=== PATIENT | male | born 1965 | race Caucasian/White ===

== ENCOUNTER 2017-09-03 12:13 | Emergency (ER) | payer OTHER ==
[~2017-09-03] VITALS: Ht 177.8 cm; Wt 83.9 kg
[~2017-09-03 12:13] MED LIST: FENT25DI2 TD; NOR10T GT
[2017-09-03 12:43] VITALS: BP 152/91
[2017-09-03] MEDS ORDERED: METHOCARBAMOL 500 MG TAB PO ONE (15:15)
[2017-09-03] MEDS ORDERED: KETOROLAC TROMETH 60MG/2ML VIAL IM ONE (15:15)
== END 2017-09-03 15:45 | disposition home or self-care (01) ==
LOC: ER 12:13
DX: G89.29 Other chronic pain (principal); M54.5 Low back pain; F17.210 Nicotine dependence, cigarettes, uncomplicated; I10 Essential (primary) hypertension; Z79.899 Other long term (current) drug therapy
CPT/HCPCS: 72100; 96372; 99284; J1885

== ENCOUNTER 2019-06-21 13:38 | Inpatient (IN) | payer MEDICARE, MEDICAID ==
[~2019-06-21] VITALS: Ht 177.8 cm; Wt 87.3 kg
[2019-06-21 15:04] LABS: Basophils # (auto) 0 10 ^3/uL (0-0.2); Basophils % (auto) 0.4 % (0.0-2.0); Eosinophils # (auto) 0.4 10 ^3/uL (0-0.8); Eosinophils % (auto) 5.8 % (0.0-7.0); Hematocrit 39.4 % (41.0-53.0); Hemoglobin 13.6 g/dL (13.5-17.5); Lymphocytes % (auto) 30.8 % (10.0-50.0); Mean Corpuscular Hemoglobin 32.3 pg (28.0-32.0); Mean Corpuscular Hgb Conc. 34.4 g/dL (32.0-36.0); Mean Corpuscular Volume 93.8 fL (80.0-100.0); Monocytes # (auto) 0.7 10 ^3/uL (0-1.3); Monocytes % (auto) 10.1 % (0.0-12.0); Neutrophils # (auto) 3.5 10 ^3/uL (1.6-8.6); Neutrophils % (auto) 52.9 % (37.0-80.0); Nucleated Red Blood Cells % 0.1 %; Platelet Count (auto) 263 10^3/uL (140-450); Red Cell Distribution Width 13.2 % (11.8-14.3); White Blood Cell 6.6 10^3/uL (4.4-10.8)
[2019-06-21 15:19] LABS: Albumin 3.6 g/dL (3.4-5.0); Calcium 9.8 mg/dL (8.5-10.1)
[2019-06-21 15:22] LABS: Bilirubin, Total 0.6 mg/dL (0.2-1.0); Total Protein 7.9 g/dL (6.4-8.2)
[2019-06-21 18:25] LABS: Urine Bacteria NONE SEEN /hpf (None Seen); Urine Blood Negative /uL (Negative); Urine Hyaline Cast MANY /lpf (0 - 2); Urine Mucus FEW (None Seen); Urine Specific Gravity 1.024 (1.001-1.035); Urine WBC 3 /hpf (0 - 3)
[2019-06-21] MEDS ORDERED: SODIUM CHLORIDE 0.9% 1,000 ML IV ONE ×2 (20:54)
[2019-06-21] MEDS ORDERED: IOHEXOL 300 MG/ML 100ML BOTTLE IJ ONE (20:57)
[2019-06-21] MEDS ORDERED: ACETAMINOPHEN 325 MG TAB PO PRN (22:30)
[2019-06-21] MEDS: SODIUM CHLORIDE 0.9% 1,000 ML IV SCH (22:55)
[2019-06-21] MEDS: HYDROcodone-ACET 5/325MG TAB PO PRN (22:55)
[2019-06-21] MEDS: PANTOPRAZOLE 40 MG TAB PO SCH (22:55)
[2019-06-21] MEDS: cefTRIAXone 1GM/50ML D5W 50 ML IV SCH (23:01)
--- NOTE | 2019-06-21 23:45 | NUR ---
[facility] admit from [facility] admitted to [facility]. Patient oriented to Wily Chaudhry, primary RN, unit, room, bed, and unit policies regarding patient care and visiting hours. The patient's is at bedside. Patient weighed by bedscale and encouraged to call if they need something. All questions and concerns addressed, patient verbalized understanding.
[2019-06-21 23:50] VITALS: BP 110/69
[2019-06-22] VITALS (8 sets, daily range): BP systolic 93–113; BP diastolic 63–74
[2019-06-22] MEDS: MORPHINE SULFATE 4 MG/ML SYR/VIAL IV PRN ×3 (00:10→14:35)
[2019-06-22] MEDS ORDERED: OXYC-629 PO (01:20)
[2019-06-22] MEDS ORDERED: ATEN-60 PO (01:20)
[2019-06-22] MEDS ORDERED: AMLO10TA13 PO (01:20)
[2019-06-22] MEDS ORDERED: OMEP20TA PO (01:20)
[2019-06-22] MEDS ORDERED: ALL100T PO (01:20)
--- NOTE | 2019-06-22 07:23 | NUR ---
Opening Shift Note Assumed care of patient, awake and alert. No S/S of distress/SOB or pain. Instructed on POC and to call for assist PRN, will continue to monitor for changes Q1hr and PRN. Bed is set in lowest locked position with side rails up x 2 for safety.
[2019-06-22] MEDS: LOSARTAN POTASSIUM 25 MG TAB PO SCH (10:00)
[2019-06-22] MEDS: ALLOPURINOL 300 MG TAB PO SCH (10:01)
[2019-06-22] MEDS: ENOXAPARIN SOD 40 MG/0.4 ML SYRINGE SC SCH (10:01)
[2019-06-22] MEDS: ASPirin 81 mg TAB PO SCH (10:01)
[2019-06-22] MEDS: HYDROcodone-ACET 5/325MG TAB PO PRN ×3 (10:02→22:24)
[2019-06-22] MEDS: DOCUSATE SOD 100 MG CAP PO PRN ×2 (10:11→22:14)
[2019-06-22 10:32] LABS: Basophils # (auto) 0 10 ^3/uL (0-0.2); Basophils % (auto) 0.5 % (0.0-2.0); Eosinophils # (auto) 0.3 10 ^3/uL (0-0.8); Eosinophils % (auto) 5.2 % (0.0-7.0); Hematocrit 34.6 % (41.0-53.0); Hemoglobin 12.1 g/dL (13.5-17.5); Lymphocytes # (auto) 1.7 10 ^3/uL (0.4-5.4); Lymphocytes % (auto) 35.5 % (10.0-50.0); Mean Corpuscular Hemoglobin 32.4 pg (28.0-32.0); Mean Corpuscular Hgb Conc. 34.8 g/dL (32.0-36.0); Mean Corpuscular Volume 93.2 fL (80.0-100.0); Monocytes # (auto) 0.5 10 ^3/uL (0-1.3); Neutrophils # (auto) 2.3 10 ^3/uL (1.6-8.6); Neutrophils % (auto) 47.8 % (37.0-80.0); Nucleated Red Blood Cells % 0.1 %; Platelet Count (auto) 217 10^3/uL (140-450); Red Blood Cells 3.72 10^6/uL (4.5-5.90); Red Cell Distribution Width 13.2 % (11.8-14.3); White Blood Cell 4.9 10^3/uL (4.4-10.8)
[2019-06-22 11:00] LABS: BUN/Creatinine Ratio 11.7; Calcium 9.4 mg/dL (8.5-10.1)
--- NOTE | 2019-06-22 11:16 | NUR ---
MD at bedside Dr. Torres, updated pt on POC. Patient verbalized understanding at this time.
[2019-06-22] MEDS ORDERED: IOHEXOL 350 MG/ML 100ML IJ ONE (11:20)
[2019-06-22] MEDS ORDERED: NICOTINE 21MG/24 HR TOPICAL PATCH TD ONE (11:30)
--- NOTE | 2019-06-22 11:30 | NUR ---
Patient off unit Taken down to radiology via wheelchair, no distress noted upon departure.
[2019-06-22] MEDS: SODIUM CHLORIDE 0.9% 1,000 ML IV SCH (12:43)
[2019-06-22] MEDS ORDERED: IPRATROPIUM BROM 0.5 MG/2.5ML INH SOL NEB PRN (14:00)
[2019-06-22] MEDS ORDERED: ALBUTEROL SULF 2.5 MG/0.5ML(0.5%) NEB SOLN NEB PRN (14:00)
--- NOTE | 2019-06-22 20:15 | NUR ---
Opening Shift Note Assumed care of patient, awake and alert. No S/S of SOB. Patient is on room air. Respirations even and unlabored. Patient reports 6/10 pain in his neck, back, and feet. Patient refuses pain medication at this time. Ice packs placed on patient's feet. Instructed on POC and to call for assist PRN, will continue to monitor for changes Q1hr and PRN.
--- NOTE | 2019-06-22 21:16 | NUR ---
Respiratory note: PT DOES NOT APPEAR TO BE IN DISTRESS AT THIS TIME. RR 18 HR 65 SPO2 97% ON RA EDUCATED PT ON NURSE CALL BUTTON IF HE FEELS SOB. WILL ENDORSE TO DAY SHIFT RT.
[2019-06-22] MEDS: PANTOPRAZOLE 40 MG TAB PO SCH (22:13)
[2019-06-22] MEDS: cefTRIAXone 1GM/50ML D5W 50 ML IV SCH (22:14)
[2019-06-23] VITALS (8 sets, daily range): BP systolic 109–135; BP diastolic 65–84
[2019-06-23] MEDS: SODIUM CHLORIDE 0.9% 1,000 ML IV SCH ×2 (03:17→18:27)
--- NOTE | 2019-06-23 04:28 | NUR ---
Endorsed care to Booker BOLAÑOS. Report given. Patient has no signs of distress.
--- NOTE | 2019-06-23 04:44 | NUR ---
RECEIVED REPORT FROM OUTGOING SENIOR ORACLE DBA RN ASSUMING ROLE OF CARE OF PATIENT AT THIS TIME. PATIENT SHOWING NO SIGN OF DISTRESS, SHORTNESS OF BREATH AND PATIENT DENYING PAIN AT THIS TIME. PATIENT RESTING COMFORTABLY. WILL CONTINUE TO MONITOR PATIENT.
--- NOTE | 2019-06-23 06:38 | NUR ---
Respiratory note: PT ASSESSED FOR PRN TX. HR 65, RR 18, POX 99%, BS ARE CLEAR. NO SOB OR DISTRESS NOTED AT THIS TIME. PT WAS NOTIFY TO HAVE RT PAGE FOR MN TX.
--- NOTE | 2019-06-23 07:00 | NUR ---
Opening Shift Note Received report on the patient. Awake lying in bed. Patient shows no signs of distress at this time. Discussed the plan of care with the patient. Bed in lowest position, side rails up x2, and the call light is within reach. Will continue to monitor.
[2019-06-23] MEDS: MORPHINE SULFATE 4 MG/ML SYR/VIAL IV PRN ×2 (08:41→20:54)
[2019-06-23] MEDS: NICOTINE 21MG/24 HR TOPICAL PATCH TD SCH (09:54)
[2019-06-23] MEDS: LOSARTAN POTASSIUM 25 MG TAB PO SCH (09:56)
[2019-06-23] MEDS: ASPirin 81 mg TAB PO SCH (09:56)
[2019-06-23] MEDS: ALLOPURINOL 300 MG TAB PO SCH (09:57)
[2019-06-23] MEDS: ENOXAPARIN SOD 40 MG/0.4 ML SYRINGE SC SCH (10:00)
[2019-06-23] MEDS ORDERED: LACTULOSE 20Gm/30ML SOLN PO ONE (11:45)
--- NOTE | 2019-06-23 12:00 | NUR ---
ASSUMED CARE OF PATIENT AT THIS TIME. RECEIVED REPORT FROM MAMI KELLER.
[2019-06-23] MEDS: HYDROcodone-ACET 5/325MG TAB PO PRN (12:10)
[2019-06-23 12:49] LABS: INR 1.05 (0.9-1.15); Partial Thromboplastin Time 36.5 sec (23.64-32.05)
[2019-06-23] MEDS: ALPRAZolam 0.5 MG TAB PO SCH ×2 (14:28→22:26)
--- NOTE | 2019-06-23 20:10 | NUR ---
IV removal from right wrist due to leaking and tenderness IV DC'd with clean sterile technique, catheter fully intact. Pressure dressing applied to site. Patient tolerated well.
--- NOTE | 2019-06-23 20:10 | NUR ---
Opening Shift Note Assumed care of patient, awake and alert. No S/S of SOB/distress. Patient is on room air. Respirations even and unlabored. Instructed on POC and to call for assist PRN, will continue to monitor for changes Q1hr and PRN.
--- NOTE | 2019-06-23 20:20 | NUR ---
Respiratory note: PT ASSESSED FOR PRN MED NEB TX. HR 75, RR 18, SPO2 97% ON RA. NO SIGNS OF ANY RESPIRATORY DISTRESS NOTED. ADVISED PT TO CALL IF TX IS NEEDED.
[2019-06-23] MEDS: cefTRIAXone 1GM/50ML D5W 50 ML IV SCH (22:26)
[2019-06-23] MEDS: PANTOPRAZOLE 40 MG TAB PO SCH (22:26)
[2019-06-24] MEDS: HYDROcodone-ACET 5/325MG TAB PO PRN ×3 (01:56→21:18)
[2019-06-24 05:17] VITALS: BP 118/70
[2019-06-24] MEDS: MORPHINE SULFATE 4 MG/ML SYR/VIAL IV PRN (05:43)
[2019-06-24] MEDS: ALPRAZolam 0.5 MG TAB PO SCH ×3 (05:44→22:11)
--- NOTE | 2019-06-24 07:00 | NUR ---
CLOSING NOTE No S/S of SOB/distress. Patient is on room air. Respirations even and unlabored.
--- NOTE | 2019-06-24 07:30 | NUR ---
Opening Shift Note RECEIVED REPORT FROM NOC RN. Assumed care of patient, awake and alert. No S/S of distress/SOB or pain. BED IN LOWEST, LOCKED POSITION WITH SIDERAILS UP x2 AND CALL LIGHT WITHIN REACH. Instructed on POC and to call for assist PRN, will continue to monitor for changes Q1hr and PRN.
[2019-06-24] MEDS: SODIUM CHLORIDE 0.9% 1,000 ML IV SCH ×2 (07:39→21:18)
[2019-06-24] MEDS ORDERED: IOHEXOL 350 MG/ML 100ML IJ ONE (07:43)
--- NOTE | 2019-06-24 08:54 | NUR ---
Respiratory note: PT AWAKE, AND ALERT. NO RESPIRATORY DISTRESS NOTED. SPO2 98% ON RA, HR 79, RR 16, BS CLEAR/DIMINISHED BILATERALLY. PRN MEDNEB TX NOT INDICATED AT THIS TIME. PT INFORMED TO PUSH CALL BUTTON IF INCREASED WOB, SOB, OR WHEEZING OCCURS.
[2019-06-24 09:11] VITALS: BP 113/72
[2019-06-24] MEDS ORDERED: LORazepam 2MG/ML-1ML VIAL IV ONE (09:30)
[2019-06-24] MEDS ORDERED: GADOTERIDOL 279.3mg/mL 20ml Vial IV ONE (09:37)
[2019-06-24] MEDS ORDERED: MIDAZOLAM HCL 1MG/1ML-2 ML VIAL IV ONE (10:15)
[2019-06-24] MEDS ORDERED: fentaNYL CITRATE 100 MCG/2 ML VL IV ONE (10:15)
[2019-06-24] MEDS ORDERED: LIDOCAINE 2%HCL (LOCAL ANESTH.) INJ 20ML MDV ONE (11:40)
[2019-06-24] MEDS: ALLOPURINOL 300 MG TAB PO SCH (11:42)
[2019-06-24] MEDS: ENOXAPARIN SOD 40 MG/0.4 ML SYRINGE SC SCH (11:42)
[2019-06-24] MEDS: NICOTINE 21MG/24 HR TOPICAL PATCH TD SCH (11:42)
[2019-06-24] MEDS: ASPirin 81 mg TAB PO SCH (11:43)
[2019-06-24] MEDS: LOSARTAN POTASSIUM 25 MG TAB PO SCH (11:43)
[2019-06-24 12:30] VITALS: BP 137/86
--- NOTE | 2019-06-24 14:01 | NUR ---
Nutrition Assessment Notes Please refer to link for full assessment notes. Est energy needs: kcals (23-25 kcal/kgBW) Est protein needs: 69-97 gms/day (0.8-1.0 gm/kgBW) Will continue to monitor and reassess prn. Addendum: 06/24/19 at [address] Amended: Links added.
--- NOTE | 2019-06-24 15:03 | NUR ---
PER DR. Maximiliano REESE, MESSAGE LEFT WITH DR. SYKES'S EXCHANGE REGARDING THE BRAIN MRI RESULTS.
[2019-06-24 17:00] VITALS: BP 129/87
[2019-06-24 20:10] VITALS: BP 127/80
--- NOTE | 2019-06-24 21:30 | NUR ---
Respiratory note: PT ASSESSED FOR PRN MED NEB TX. HR 83, RR 18, SPO2 99% ON RA. NO SIGNS OF ANY RESPIRATORY DISTRESS NOTED. ADVISED PT TO CALL IF TX IS NEEDED. RT NAME AND PAGER NUMBER WRITTEN ON PT'S BOARD.
[2019-06-24 22:00] VITALS: BP 127/80
[2019-06-24] MEDS: PANTOPRAZOLE 40 MG TAB PO SCH (22:11)
[2019-06-24] MEDS: DexAMETHasone SOD PHOS 4 MG/1ML SDV INJ IV SCH (22:11)
[2019-06-24] MEDS: cefTRIAXone 1GM/50ML D5W 50 ML IV SCH (22:12)
--- NOTE | 2019-06-24 22:40 | NUR ---
HR reassessed and is 98. Patient has no S/S of distress/SOB. Patient asymptomatic.
--- NOTE | 2019-06-25 04:25 | NUR ---
IV removal due to leaking and bleeding IV DC'd with clean sterile technique, catheter fully intact. Pressure dressing applied to site. Patient tolerated well.
--- NOTE | 2019-06-25 04:50 | NUR ---
IV insertion IV access obtained, via clean sterile technique by inserting 22 gauge catheter at right AC after 2 attempts by Martín BOLAÑOS. IV secured properly. No trauma to site. Patient tolerated well.
[2019-06-25 05:00] VITALS: BP 109/82
[2019-06-25] MEDS: ALPRAZolam 0.5 MG TAB PO SCH ×3 (05:27→21:34)
--- NOTE | 2019-06-25 07:00 | NUR ---
CLOSING NOTE No S/S of SOB/distress. Patient is on room air. Respirations even and unlabored.
--- NOTE | 2019-06-25 08:00 | NUR ---
RECEIVED PATIENT ALERT AND ORIENTED X4, NOT IN DISTRESS, CLEAR LUNG SOUNDS RR=18 DEEP BREATHING AND COUGHING WAS ENCOURAGED, DEMONSTRATED WELL, HEART R=78, ABDOMEN SOFT WITH ACTIVE BS, LAST BM=06/25/19 REPORTED, SKIN INTACT WARM TO TOUCH, RADIAL AND PEDAL PULSES PALPABLE, CAP REFILL <3 SECONDS, RESTING ON BED, HEAD OF BED ELEVATED, BED ON LOW POSITION, RAILS UP X2, CALL LIGHT ON REACH, WILL CONTINUE MONITORING.
[2019-06-25 09:00] VITALS: BP_SYST 94; BP_SYST 95; BP_DIAS 60; BP_DIAS 61
[2019-06-25] MEDS: LOSARTAN POTASSIUM 25 MG TAB PO SCH (09:36)
[2019-06-25] MEDS: ASPirin 81 mg TAB PO SCH (09:36)
[2019-06-25] MEDS: DexAMETHasone SOD PHOS 4 MG/1ML SDV INJ IV SCH ×2 (09:36→21:34)
[2019-06-25] MEDS: ALLOPURINOL 300 MG TAB PO SCH (09:37)
[2019-06-25] MEDS: ENOXAPARIN SOD 40 MG/0.4 ML SYRINGE SC SCH (09:37)
[2019-06-25] MEDS: NICOTINE 21MG/24 HR TOPICAL PATCH TD SCH (09:38)
--- NOTE | 2019-06-25 11:56 | NUR ---
REFUSED 10:00 AM VALERIE RHOADES.
[2019-06-25] MEDS: SODIUM CHLORIDE 0.9% 1,000 ML IV SCH (12:15)
[2019-06-25] MEDS: ONDANSETRON HCL 4 MG/2 ML VIAL IV PRN (12:32)
[2019-06-25] MEDS: MORPHINE SULFATE 4 MG/ML SYR/VIAL IV PRN ×2 (12:33→20:08)
[2019-06-25 13:00] VITALS: BP_SYST 100; BP_SYST 134; BP_DIAS 69; BP_DIAS 82
--- NOTE | 2019-06-25 14:57 | NUR ---
OUT OF BED, SITTING ON THE CHAIR, PENDING RADIOLOGY AND ONCOLOGY CONSULT, AT BED SITE, WILL CONTINUE MONITORING.
--- NOTE | 2019-06-25 15:01 | NUR ---
RADIOLOGY WAS CONTACTED, FOR FOLLOW UP AND RADIOLOGY CONSULT UPDATES, NO RADIOLOGY PROCESS PENDING FOR TODAY REPORTED, DR. REESE WAS NOTIFIED AND AWARE, WILL CONTINUE MONITORING.
--- NOTE | 2019-06-25 16:29 | NUR ---
assessment Patient is a 53 year old male who is alert and oriented. Patients cognitive abilities are intact. Prior to admission patient lived home with a friend and functioned independently. Patient informed me he is able to care for his own ADLs. Per patient he will return home to his prior living arrangements post discharge and family will transport him home. Patient informed me he has a fww for home use. Patient feels safe returning home on discharge. Patients post discharge needs to be determined prior to discharge. I informed patient he has a right to speak to a social media campaign manager regarding all care. I informed patient he has a right to participate in any and all discharge planning. Patient does not have a POA and advanced directive. I have offered patient information on POA and advanced directives. I informed the patient the advantages and benefits of having an Advanced Directive. Patient verbalized understanding and agreed to discharge plan. Addendum: 06/25/19 at 1630 by Archana LEYVA Amended: Links added.
[2019-06-25 17:00] VITALS: BP 125/78
[2019-06-25] MEDS: HYDROcodone-ACET 5/325MG TAB PO PRN (18:39)
--- NOTE | 2019-06-25 19:30 | NUR ---
RESTING ON BED, NOT IN DISTRESS, HEAD OF BED ELEVATED, BED ON LOW POSITION, RAILS UP X2, CALL LIGHT ON REACH, REPORT WAS GIVEN TO THE SENIOR SOFTWARE DEVELOPMENT ENGINEER RN.
[2019-06-25] MEDS: PANTOPRAZOLE 40 MG TAB PO SCH (21:34)
[2019-06-25 22:00] VITALS: BP 111/71
[2019-06-26] MEDS: SODIUM CHLORIDE 0.9% 1,000 ML IV SCH ×2 (02:33→16:51)
[2019-06-26 05:00] VITALS: BP 93/57
[2019-06-26] MEDS: ALPRAZolam 0.5 MG TAB PO SCH ×3 (05:33→21:50)
--- NOTE | 2019-06-26 07:45 | NUR ---
RECEIVED PATIENT ALERT AND ORIENTED X4, NOT IN DISTRESS, CLEAR LUNG SOUNDS IN BILATERAL UPPER AND DIMINISHED IN LOWER LOBES RR=18 DEEP BREATHING AND COUGHING WAS ENCOURAGED, DEMONSTRATED WELL, HEART R=74, ABDOMEN SOFT WITH ACTIVE BS, LAST BM=06/25/19 REPORTED, SKIN INTACT WARM TO TOUCH, RADIAL AND PEDAL PULSES PALPABLE, CAP REFILL <3 SECONDS, RESTING ON BED, HEAD OF BED ELEVATED, BED ON LOW POSITION, RAILS UP X2, CALL LIGHT ON REACH, WILL CONTINUE MONITORING.
[2019-06-26 09:00] VITALS: BP 124/84
--- NOTE | 2019-06-26 09:00 | NUR ---
DR. ESCOBAR WAS CALLED FOR PENDING CONSULTING FOLLOW UP AND UPDATED, LEFT A MESSAGE, WAITING FOR CALL BACK, WILL CONTINUE MONITORING.
[2019-06-26] MEDS: LOSARTAN POTASSIUM 25 MG TAB PO SCH (09:31)
[2019-06-26] MEDS: ASPirin 81 mg TAB PO SCH (09:31)
[2019-06-26] MEDS: DexAMETHasone SOD PHOS 4 MG/1ML SDV INJ IV SCH ×2 (09:31→21:48)
[2019-06-26] MEDS: NICOTINE 21MG/24 HR TOPICAL PATCH TD SCH (09:32)
[2019-06-26] MEDS: ALLOPURINOL 300 MG TAB PO SCH (09:32)
[2019-06-26] MEDS: MORPHINE SULFATE 4 MG/ML SYR/VIAL IV PRN (09:33)
[2019-06-26] MEDS: ONDANSETRON HCL 4 MG/2 ML VIAL IV PRN (09:33)
[2019-06-26] MEDS: ENOXAPARIN SOD 40 MG/0.4 ML SYRINGE SC SCH (10:00)
[2019-06-26 13:00] VITALS: BP 112/79
--- NOTE | 2019-06-26 14:30 | NUR ---
OUT OF BED AND AMBULATED AROUND THE UNIT, TOLERATED WELL, TOLERATED SHOWER, NOT IN DISTRESS, RESTING ON BED AND SLEEPING, PENDING ONCOLOGY CONSULT, HEAD OF BED ELEVATED, BED ON LOW POSITION, RAILS UP X2, CALL LIGHT ON REACH, WILL CONTINUE MONITORING.
[2019-06-26] MEDS: HYDROcodone-ACET 5/325MG TAB PO PRN ×2 (17:22→21:52)
--- NOTE | 2019-06-26 19:25 | NUR ---
RESTING ON BED, NOT IN DISTRESS, HEAD OF BED ELEVATED, BED ON LOW POSITION, RAILS UP X2, CALL LIGHT ON REACH, REPORT WAS GIVEN TO THE BAKERY DECORATOR RN.
--- NOTE | 2019-06-26 19:28 | NUR ---
Opening Shift Note Received report from neal Hooper RN. Assumed care of patient, awake and alert. No S/S of distress/SOB, but c/o pain to back. Will give pain medication or pain. Instructed on POC and to call for assist PRN, will continue to monitor for changes Q1hr and PRN. Bed placed in lowest position, and call light within reach.
[2019-06-26 20:00] VITALS: BP 115/60
[2019-06-26] MEDS: PANTOPRAZOLE 40 MG TAB PO SCH (21:50)
--- NOTE | 2019-06-26 21:52 | NUR ---
Pain medication given for back pain. Will monitor
[2019-06-26 22:00] VITALS: BP 115/60
[2019-06-27 05:00] VITALS: BP 112/67
--- NOTE | 2019-06-27 05:05 | NUR ---
Patient is resting in bed with eyes closed, no distress noted and patient denies pain at this time.
[2019-06-27] MEDS: MORPHINE SULFATE 4 MG/ML SYR/VIAL IV PRN ×2 (05:14→14:14)
[2019-06-27] MEDS: ALPRAZolam 0.5 MG TAB PO SCH ×3 (06:41→20:23)
[2019-06-27] MEDS: SODIUM CHLORIDE 0.9% 1,000 ML IV SCH ×2 (07:09→20:24)
[2019-06-27 09:00] VITALS: BP 126/89
[2019-06-27] MEDS: LOSARTAN POTASSIUM 25 MG TAB PO SCH (10:19)
[2019-06-27] MEDS: ASPirin 81 mg TAB PO SCH (10:19)
[2019-06-27] MEDS: DexAMETHasone SOD PHOS 4 MG/1ML SDV INJ IV SCH ×2 (10:19→20:24)
[2019-06-27] MEDS: ALLOPURINOL 300 MG TAB PO SCH (10:20)
[2019-06-27] MEDS: ENOXAPARIN SOD 40 MG/0.4 ML SYRINGE SC SCH (10:20)
[2019-06-27] MEDS: NICOTINE 21MG/24 HR TOPICAL PATCH TD SCH (10:20)
[2019-06-27] MEDS: HYDROcodone-ACET 5/325MG TAB PO PRN ×2 (10:21→20:39)
--- NOTE | 2019-06-27 10:30 | NUR ---
OUT OF BED AND AMBULATED AROUND THE UNIT, BACK TO THE BED, TOLERATED WELL, WILL CONTINUE MONITORING,
[2019-06-27 12:58] VITALS: BP 119/77
--- NOTE | 2019-06-27 13:56 | NUR ---
CONTACTED PATHOLOGY FOR ADRENAL BIOPSY RESULT FOLLOW UP AND UPDATES, PATHOLOGY WILL BRING THE RESULT INFORMATION TO THE CHART REPORTED, WILL CONTINUE MONITORING.
[2019-06-27] MEDS: ONDANSETRON HCL 4 MG/2 ML VIAL IV PRN (14:14)
--- NOTE | 2019-06-27 14:43 | NUR ---
PENDING SURGICAL CONSULT FOR PORT CATH PLACE MENT ORDERED, OR WAS CALLED X4 NO RESPONSE, RESTING ON BED, NOT IN DISTRESS, WILL CONTINUE MONITORING.
--- NOTE | 2019-06-27 15:05 | NUR ---
DR. DUNN WAS PAGED FOR SURGICAL CONSULT ORDERED, WAITING FOR CALL BACK.
--- NOTE | 2019-06-27 15:31 | NUR ---
Nutrition Follow-up Notes Wt.: 85.3 kg today Currently on Regular diet with good PO intake aeb avg of 75%. Est energy needs: 5460-5486 kcals (23-25 kcal/kgBW). Est protein needs: 69-97 gms/day (0.8-1.0 gm/kgBW). Will continue to monitor pertinent labs and reassess nutrient needs prn No new pertinent labs since 06/22/19. Skin: Jose scale 20, low risk, skin intact per dry primer powder blender. GI: Pt had BM 06/25/19 per dry primer powder blender. PES: No current Nutritional Pr Will continue to monitor PO status, skin status, pertinent labs and weight trend. F/u in 3 to 5 days. Recommendations: 1) Continue to closely monitor pt PO intake to meet a goal of at least 75% of meals eaten 2) Continue current plan of care.
[2019-06-27 17:00] VITALS: BP 108/89
--- NOTE | 2019-06-27 19:01 | NUR ---
SURGICAL CONSULT WITH DR. JACOME WAS DONE, PENDING CBC PT AND INR, PENDING KEEP NPO POST MD, HOLD LOVENOX SQ IN AM, FOR POSSIBLE PORT CATH INSERTION IN AM REPORTED BY DR. JACOME, WILL CONTINUE MONITORING.
--- NOTE | 2019-06-27 19:18 | NUR ---
RESTING ON BED, NOT IN DISTRESS, HEAD OF BED ELEVATED, BED ON LOW POSITION, RAILS UP X2, CALL LIGHT ON REACH, REPORT WAS GIVEN TO THE FOREST ECOLOGY PROFESSOR RN.
[2019-06-27 19:26] LABS: Basophils # (auto) 0 10 ^3/uL (0-0.2); Eosinophils # (auto) 0 10 ^3/uL (0-0.8); Hematocrit 34.1 % (41.0-53.0); Hemoglobin 11.6 g/dL (13.5-17.5); Lymphocytes # (auto) 1.2 10 ^3/uL (0.4-5.4); Lymphocytes % (auto) 9.7 % (10.0-50.0); Mean Corpuscular Hemoglobin 31.8 pg (28.0-32.0); Mean Corpuscular Hgb Conc. 34.1 g/dL (32.0-36.0); Mean Corpuscular Volume 93.3 fL (80.0-100.0); Monocytes # (auto) 0.5 10 ^3/uL (0-1.3); Monocytes % (auto) 4.2 % (0.0-12.0); Neutrophils # (auto) 10.6 10 ^3/uL (1.6-8.6); Neutrophils % (auto) 86.1 % (37.0-80.0); Platelet Count (auto) 241 10^3/uL (140-450); Red Blood Cells 3.65 10^6/uL (4.5-5.90); Red Cell Distribution Width 13.1 % (11.8-14.3); White Blood Cell 12.4 10^3/uL (4.4-10.8)
[2019-06-27 19:40] LABS: INR 1.03 (0.9-1.15)
[2019-06-27] MEDS: PANTOPRAZOLE 40 MG TAB PO SCH (20:23)
[2019-06-27 22:00] VITALS: BP 125/83
--- NOTE | 2019-06-28 | NUR ---
PT NOW NPO, PT EDUCATED, STATED UNDERSTANDING, SAFETY PRECAUTIONS IN PLACE. WILL CONTINUE TO MONITOR.
[2019-06-28] MEDS: HYDROcodone-ACET 5/325MG TAB PO PRN (00:13)
[2019-06-28] MEDS: ONDANSETRON HCL 4 MG/2 ML VIAL IV PRN ×4 (03:46→21:15)
[2019-06-28] MEDS: MORPHINE SULFATE 4 MG/ML SYR/VIAL IV PRN ×5 (03:46→23:59)
[2019-06-28 05:00] VITALS: BP 136/90
[2019-06-28] MEDS: ALPRAZolam 0.5 MG TAB PO SCH ×4 (06:00→21:27)
[2019-06-28 08:00] VITALS: BP 111/61
[2019-06-28 09:00] VITALS: BP 111/61
[2019-06-28] MEDS: LOSARTAN POTASSIUM 25 MG TAB PO SCH (10:00)
[2019-06-28] MEDS: ALLOPURINOL 300 MG TAB PO SCH (10:00)
[2019-06-28] MEDS: ASPirin 81 mg TAB PO SCH (10:00)
[2019-06-28] MEDS: ENOXAPARIN SOD 40 MG/0.4 ML SYRINGE SC SCH (10:00)
[2019-06-28] MEDS: DexAMETHasone SOD PHOS 4 MG/1ML SDV INJ IV SCH ×2 (10:00→21:27)
[2019-06-28] MEDS: NICOTINE 21MG/24 HR TOPICAL PATCH TD SCH (10:00)
[2019-06-28] MEDS ORDERED: LIDOCAINE 1% HCL (LOCAL ANESTH.) INJ 20ML MDV ONE (10:06)
[2019-06-28] MEDS ORDERED: ceFAZolin 1GM VL ONE (10:06)
[2019-06-28] MEDS ORDERED: HEPARIN SODIUM (PORCINE) 5000 UNITS/ML 1ML VIAL ONE (10:07)
[2019-06-28] MEDS ORDERED: HEPARIN 1,000 UNITS/ml 1ML VIAL ONE (10:07)
[2019-06-28] MEDS ORDERED: MEPERIDINE HCL (25 MG/ML) 1ML VIAL ONE (10:24)
[2019-06-28] MEDS ORDERED: fentaNYL CITRATE 100 MCG/2 ML VL ONE (10:25)
[2019-06-28] MEDS ORDERED: MIDAZOLAM HCL 1MG/1ML-2 ML VIAL ONE (10:25)
[2019-06-28] MEDS ORDERED: ceFAZolin 1GM/50ML 50 ML IV ONE (10:32)
[2019-06-28] MEDS ORDERED: PROPOFOL 10 MG/ML 20 ML IV ONE (11:22)
[2019-06-28] MEDS ORDERED: DexAMETHasone SOD PHOS 10MG/1ML VIAL INJ ONE (11:22)
[2019-06-28] MEDS: SODIUM CHLORIDE 0.9% 1,000 ML IV SCH (11:45)
--- NOTE | 2019-06-28 12:14 | NUR ---
RECEIVED REPORT FROM LISSETT BOLAÑOS PATIENT CAN RESUME DIET AND ALL ORDERS ORDERED AND PER DR JACOME NATALIE CATH CAN BE USED IN 48 HOURS.
[2019-06-28] MEDS: DOCUSATE SOD 100 MG CAP PO PRN (18:35)
[2019-06-28] MEDS: PANTOPRAZOLE 40 MG TAB PO SCH (21:27)
[2019-06-28 22:00] VITALS: BP 133/65
[2019-06-29] MEDS: HYDROcodone-ACET 5/325MG TAB PO PRN (00:50)
[2019-06-29] MEDS: SODIUM CHLORIDE 0.9% 1,000 ML IV SCH (02:03)
[2019-06-29] MEDS: MORPHINE SULFATE 4 MG/ML SYR/VIAL IV PRN ×2 (04:42→09:44)
[2019-06-29 05:00] VITALS: BP 127/83
[2019-06-29] MEDS: ALPRAZolam 0.5 MG TAB PO SCH ×2 (05:54→14:00)
--- NOTE | 2019-06-29 07:15 | NUR ---
PATIENT COMPLAINED OF PAIN AT HIS SURGICAL SITE ON THE LEFT UPPER CHEST. WAS MEDICATED FOR PAIN WITH MORPHINE AND NORCO. HIS ANTECUBITAL IV LINE BECAME INFILTRATED AND A NEW ONE INSERTED ON THE RIGHT HAND. GUAGE 22. HIS IV FLUID IS INFUSING NOW UNINITERRUPTED.
--- NOTE | 2019-06-29 07:30 | NUR ---
Opening Shift Note Assumed care of patient. Patient is awake and alert x4. No S/S of distress/SOB or pain. Instructed on POC and to call for assist. Will continue to monitor. Bed locked in the lowest position. Bed rails up x2. Call light in reach.
[2019-06-29 08:43] VITALS: BP 146/87
[2019-06-29] MEDS: ALLOPURINOL 300 MG TAB PO SCH (09:44)
[2019-06-29] MEDS: DexAMETHasone SOD PHOS 4 MG/1ML SDV INJ IV SCH (09:45)
[2019-06-29] MEDS: ASPirin 81 mg TAB PO SCH (09:45)
[2019-06-29] MEDS: LOSARTAN POTASSIUM 25 MG TAB PO SCH (09:46)
[2019-06-29] MEDS: ENOXAPARIN SOD 40 MG/0.4 ML SYRINGE SC SCH (09:46)
[2019-06-29] MEDS: NICOTINE 21MG/24 HR TOPICAL PATCH TD SCH (09:54)
[2019-06-29] MEDS: DOCUSATE SOD 100 MG CAP PO PRN (09:54)
--- NOTE | 2019-06-29 10:00 | NUR ---
MD AT THE BEDSIDE ALL QUESTIONS AND CONCERNS ADDRESSED AT THIS TIME.
[2019-06-29 10:14] VITALS: BP 146/87
--- NOTE | 2019-06-29 14:40 | NUR ---
DISCHARGE Discharge instructions given as ordered. Encourage to follow up with PMD as instructed. Instructed patient to call as soon as possible to schedule all follow up appointments. Patient refused to see PCP. Patient states, "My primary could have caught this a long time ago and didn't even check me, i don't want to see him anymore." Provided patient with patient hospice care transitions coordinator contact information and to call on Monday to possibly assist with arranging new PCP. All questions and concerns addressed. Patient verbalized understanding. Medication reconciliation form completed and copy given to patient. Educated patient and patients significant other and other present family extensively on narcotic use. Patient verbalized understanding and states, "I will contact my pain management center before I fill the prescription. I will stagger my pain medications and I will not take them at the same time because I can overdose." IV removed with catheter intact, pressure dressing applied. Patient taken to vehicle via wheelchair with all personal belongings, accompanied by staff and family member. No distress noted at time of departure.
== END 2019-06-29 14:40 | disposition home or self-care (01) | DRG 181 ==
LOC: ER 13:38 → TELE 13:39 → WEST WING 23:44
PROVIDERS: ADMIT Hospitalist; ATTEND Family Medicine
PROC: 0GB33ZX Excision of Right Adrenal Gland, Percutaneous Approach, Diagnostic (ICD-10-PCS; principal; 2019-06-24)
PROC: 0JH63XZ Insertion of Tunneled Vascular Access Device into Chest Subcutaneous Tissue and Fascia, Percutaneous Approach (ICD-10-PCS; 2019-06-28)
PROC: 05H633Z Insertion of Infusion Device into Left Subclavian Vein, Percutaneous Approach (ICD-10-PCS; 2019-06-28)
PROC: B5171ZA Fluoroscopy of Left Subclavian Vein using Low Osmolar Contrast, Guidance (ICD-10-PCS; 2019-06-28)
DX: C34.90 Malignant neoplasm of unspecified part of unspecified bronchus or lung (principal); N39.0 Urinary tract infection, site not specified; C77.9 Secondary and unspecified malignant neoplasm of lymph node, unspecified; C79.71 Secondary malignant neoplasm of right adrenal gland; B37.0 Candidal stomatitis; C79.31 Secondary malignant neoplasm of brain; C79.72 Secondary malignant neoplasm of left adrenal gland; K21.9 Gastro-esophageal reflux disease without esophagitis; D35.2 Benign neoplasm of pituitary gland; I10 Essential (primary) hypertension; J44.9 Chronic obstructive pulmonary disease, unspecified; R91.8 Other nonspecific abnormal finding of lung field; G89.29 Other chronic pain; F41.9 Anxiety disorder, unspecified; M1A.9XX0 Chronic gout, unspecified, without tophus (tophi); Z95.828 Presence of other vascular implants and grafts
CPT/HCPCS: 10022; 36415; 36561; 70450; 70553; 71045; 71260; 71275; 74150; 74176; 76001; 77001; 77012; 80048; 80053; 81001; 85025; 85379; 85610; 85730; 86850; 86900; 86901; 87086; 93005; 93970; G0378; J0690; J0696; J1100; J2001; J2250; J2405; J2704

== ENCOUNTER → 2019-07-15 | Outpatient (CLI) | payer MEDICARE, MEDICAID ==
[~2019-07-15] MED LIST changes: +ALL100T PO; +AMLO10TA13 PO; +ATEN-60 PO; +OMEP20TA PO; +OXYC-629 PO
[2019-07-15 13:35] LABS: Basophils # (auto) 0 10 ^3/uL (0-0.2); Basophils % (auto) 0.1 % (0.0-2.0); Eosinophils # (auto) 0 10 ^3/uL (0-0.8); Eosinophils % (auto) 0.1 % (0.0-7.0); Hemoglobin 11.9 g/dL (13.5-17.5); Lymphocytes % (auto) 9.6 % (10.0-50.0); Mean Corpuscular Hemoglobin 31.7 pg (28.0-32.0); Mean Corpuscular Volume 96.2 fL (80.0-100.0); Monocytes # (auto) 0.4 10 ^3/uL (0-1.3); Monocytes % (auto) 3.7 % (0.0-12.0); Neutrophils # (auto) 8.6 10 ^3/uL (1.6-8.6); Neutrophils % (auto) 86.5 % (37.0-80.0); Nucleated Red Blood Cells % 0.1 %; Platelet Count (auto) 183 10^3/uL (140-450); Red Blood Cells 3.74 10^6/uL (4.5-5.90); Red Cell Distribution Width 14.6 % (11.8-14.3)
[2019-07-15 13:57] LABS: Albumin 3.6 g/dL (3.4-5.0); Calcium 8.7 mg/dL (8.5-10.1)
[2019-07-15 14:01] LABS: BUN/Creatinine Ratio 20.8; Bilirubin, Total 0.5 mg/dL (0.2-1.0); Total Protein 6.7 g/dL (6.4-8.2)
== END | disposition home or self-care (01) ==
LOC: LAB 13:18
PROVIDERS: ATTEND Internal Medicine
DX: C34.12 Malignant neoplasm of upper lobe, left bronchus or lung (principal)
CPT/HCPCS: 36415; 80053; 83615; 85025

== ENCOUNTER → 2019-07-24 | Outpatient (CLI) | payer MEDICARE ==
[2019-07-24 13:46] LABS: Basophils # (auto) 0 10 ^3/uL (0-0.2); Basophils % (auto) 0.4 % (0.0-2.0); Eosinophils # (auto) 0 10 ^3/uL (0-0.8); Eosinophils % (auto) 0.1 % (0.0-7.0); Hematocrit 34.6 % (41.0-53.0); Hemoglobin 11.6 g/dL (13.5-17.5); Lymphocytes # (auto) 1.6 10 ^3/uL (0.4-5.4); Lymphocytes % (auto) 18.9 % (10.0-50.0); Mean Corpuscular Hemoglobin 32.5 pg (28.0-32.0); Mean Corpuscular Hgb Conc. 33.5 g/dL (32.0-36.0); Monocytes # (auto) 0.5 10 ^3/uL (0-1.3); Neutrophils # (auto) 6.4 10 ^3/uL (1.6-8.6); Neutrophils % (auto) 74.6 % (37.0-80.0); Platelet Count (auto) 164 10^3/uL (140-450); Red Blood Cells 3.57 10^6/uL (4.5-5.90); Red Cell Distribution Width 15.2 % (11.8-14.3); White Blood Cell 8.5 10^3/uL (4.4-10.8)
[2019-07-24 14:14] LABS: Albumin 3.2 g/dL (3.4-5.0); Calcium 9.2 mg/dL (8.5-10.1); Potassium 4.3 mmol/L (3.5-5.1); Uric Acid 4.9 mg/dL (3.5-7.2)
[2019-07-24 14:17] LABS: BUN/Creatinine Ratio 8.3; Bilirubin, Total 0.3 mg/dL (0.2-1.0); Total Protein 6.7 g/dL (6.4-8.2)
== END | disposition home or self-care (01) ==
LOC: LAB 13:26
PROVIDERS: ATTEND Internal Medicine
DX: C34.12 Malignant neoplasm of upper lobe, left bronchus or lung (principal); I10 Essential (primary) hypertension
CPT/HCPCS: 36415; 80053; 83615; 84443; 84550; 85025

== ENCOUNTER → 2019-08-13 | Outpatient (CLI) | payer MEDICARE ==
[2019-08-13 11:48] LABS: Hematocrit 30.9 % (41.0-53.0); Hemoglobin 10.3 g/dL (13.5-17.5); Mean Corpuscular Hemoglobin 33.1 pg (28.0-32.0); Mean Corpuscular Hgb Conc. 33.3 g/dL (32.0-36.0); Mean Corpuscular Volume 99.3 fL (80.0-100.0); Platelet Count (auto) 108 10^3/uL (140-450); Red Blood Cells 3.11 10^6/uL (4.5-5.90); Red Cell Distribution Width 18.3 % (11.8-14.3); White Blood Cell 9.1 10^3/uL (4.4-10.8)
[2019-08-13 11:54] LABS: Basophils % (manual) 0 (0.0-2.0); Blast Cells 0; Eosinophils % (manual) 0 (0-7); Myelocytes % 0; Promyelocytes % 0; Reactive Lymphocytes 0
[2019-08-13 12:09] LABS: Band Neutrophils % (manual) 4; Lymphocytes % (manual) 28 (10.0-50.0); Metamyelocytes % 1; Monocytes % (manual) 10 (0-12)
[2019-08-13 13:03] LABS: Calcium 8.6 mg/dL (8.5-10.1)
[2019-08-13 13:09] LABS: Albumin 3.4 g/dL (3.4-5.0); BUN/Creatinine Ratio 14.8; Bilirubin, Total 0.4 mg/dL (0.2-1.0); Total Protein 6.7 g/dL (6.4-8.2)
== END | disposition home or self-care (01) ==
LOC: LAB 11:33
PROVIDERS: ATTEND Internal Medicine
DX: C34.12 Malignant neoplasm of upper lobe, left bronchus or lung (principal)
CPT/HCPCS: 36415; 80053; 83615; 85007; 85027

== ENCOUNTER → 2019-08-19 | Outpatient (CLI) | payer MEDICARE, MEDICAID ==
[2019-08-19 13:36] LABS: Basophils # (auto) 0 10 ^3/uL (0-0.2); Basophils % (auto) 0.2 % (0.0-2.0); Eosinophils # (auto) 0 10 ^3/uL (0-0.8); Hematocrit 32.6 % (41.0-53.0); Hemoglobin 10.8 g/dL (13.5-17.5); Lymphocytes # (auto) 1.2 10 ^3/uL (0.4-5.4); Lymphocytes % (auto) 6.1 % (10.0-50.0); Mean Corpuscular Hemoglobin 33.4 pg (28.0-32.0); Mean Corpuscular Hgb Conc. 33.2 g/dL (32.0-36.0); Mean Corpuscular Volume 100.6 fL (80.0-100.0); Monocytes # (auto) 0.8 10 ^3/uL (0-1.3); Monocytes % (auto) 4.4 % (0.0-12.0); Neutrophils # (auto) 16.7 10 ^3/uL (1.6-8.6); Neutrophils % (auto) 89.3 % (37.0-80.0); Nucleated Red Blood Cells % 0.3 %; Platelet Count (auto) 316 10^3/uL (140-450); Red Blood Cells 3.24 10^6/uL (4.5-5.90); White Blood Cell 18.7 10^3/uL (4.4-10.8)
[2019-08-19 13:57] LABS: Albumin 3.5 g/dL (3.4-5.0); Calcium 8.7 mg/dL (8.5-10.1); Potassium 4.3 mmol/L (3.5-5.1)
[2019-08-19 14:01] LABS: BUN/Creatinine Ratio 16.4; Bilirubin, Total 0.4 mg/dL (0.2-1.0); Total Protein 6.9 g/dL (6.4-8.2)
== END | disposition home or self-care (01) ==
LOC: LAB 13:21
PROVIDERS: ATTEND Internal Medicine
DX: C34.12 Malignant neoplasm of upper lobe, left bronchus or lung (principal)
CPT/HCPCS: 36415; 80053; 85025